=== PATIENT | female | born 1995 | race Two or more races ===

== ENCOUNTER 2019-01-23 08:37 | Emergency (ER) | payer SELFPAY ==
[~2019-01-23] VITALS: Ht 175.3 cm; Wt 79.4 kg
[2019-01-23] MEDS ORDERED: IV NORMAL SALINE 1000ML BAG 1,000 ML IV SCH (08:58)
[2019-01-23] MEDS ORDERED: MORPHINE SULFATE 4 MG/ML VIAL. IV/SQ PRN (09:00)
--- NOTE | 2019-01-23 09:10 | PHYS DOC ---
Past Medical History Past Medical History: No Pertinent History (CLAY CARLISLE MD) Past Surgical History: No Surgical History (CLAY CARLISLE MD) Alcohol Use: Occasionally Drug Use: None (CLAY CARLISLE MD) Adult General Chief Complaint Chief Complaint: ABDOMINAL PAIN HPI HPI Patient is a 23-year-old female who presents to the emergency department for evaluation of right-sided pelvic pain, which began overnight. She began her menstrual cycle yesterday. She states initially she thought the pain was just menstrual-related pain but the pain is worsened. She has had some nausea but no vomiting. She has not had any dysuria, fevers, or vaginal discharge other than her menstrual period. She denies any dizziness, lightheadedness, numbness, or weakness. She has no prior abdominal surgeries. There are no alleviating or exacerbating factors to her symptoms. (CLAY CARLSILE MD) Review of Systems Review of Systems Constitutional: Denies fever or chills [] Eyes: Denies change in visual acuity, redness, or eye pain [] HENT: Denies nasal congestion or sore throat [] Respiratory: Denies cough or shortness of breath [] Cardiovascular: The patient denies any shortness of breath, chest pain, palpitations, or orthopnea [] GI: Denies abdominal pain (other than her pelvic pain). , nausea, vomiting, bloody stools or diarrhea [] : Denies dysuria or hematuria [] Musculoskeletal: Denies back pain or joint pain [] Integument: Denies rash or skin lesions [] Neurologic: Denies headache, focal weakness or sensory changes [] Endocrine: Denies polyuria or polydipsia [] All other systems were reviewed and found to be within normal limits, except as documented in this note. (CLAY CARLISLE MD) Current Medications Current Medications Current Medications Medications (Trade) Dose Ordered Sig/Emelia Start Time Stop Time Status Last Admin Dose Admin Morphine Sulfate (Morphine Sulfate) 4 mg PRN Q15MIN PRN 01/23/19 09:00 01/24/19 08:59 UNV Sodium Chloride 1,000 ml @ 1,000 mls/hr Q1H 01/23/19 08:58 01/23/19 09:57 UNV (MUTUNGA,JESSICA CLEATER) Physical Exam Physical Exam PHYSICAL EXAM: CONSTITUTIONAL: Well developed, well nourished HEAD: normocephalic, atraumatic EENT: PERRL, EOMI. Conjunctivae normal color, sclerae non-icteric; moist mucous membranes. NECK: Supple, non-tender; no meningismus. LUNGS: Lungs CTA, breathing even and unlabored. Normal air movement. HEART: Regular rate and rhythm, no murmur CHEST: No deformity; non-tender ABDOMEN: The abdomen is soft, and non-tender, no masses or bruits. There is focal right sided suprapubic tenderness to palpation in the pelvic area. The right lower quadrant of the abdomen itself is nontender. The upper abdomen, and left abdomen are nontender. EXTREM: Normal ROM; no deformity, no calf tenderness. Normal pulses palpable in all extremities. There is no pedal edema. SKIN: No rash; no diaphoresis NEURO: Alert; normal speech and cognition; CN's grossly intact; strength grossly intact without focal deficit. BACK: No CVA TTP. PELVIC EXAM: Deferred, per patient request for female provider to perform the exam. (CLAY CARLISLE MD) Physical Exam Pelvic exam done by Jessica ANDERSON-external pelvic has trace amount of bright red blood which was wiped off otherwise no acute finding on the external pelvic, cervix is visualized, closed, no CMT, no left adnexal tenderness, mild right adnexal tenderness, small amount of bright red blood in the vaginal vault. (JESSICA FRANCIS APRN) Current Patient Data Vital Signs Vital Signs Date Time Temp Pulse Resp B/P (MAP) Pulse Ox O2 Delivery O2 Flow Rate FiO2 01/23/19 08:50 97.9 75 18 122/65 (84) 98 Room Air 97.9 (JESSICA FRANCIS APRN) Lab Values Laboratory Tests Test 01/23/19 09:00 POC Urine HCG, Qualitative Hcg negative (Negative) (JESSICA FRANCIS APRN) EKG EKG [] (CLAY CARLISLE MD) Radiology/Procedures Radiology/Procedures PROCEDURE: PELVIS W/TV PELVIS W/TV: 01/23/2019 8:58 AM INDICATION: 23 years old Female. Right-sided pelvic pain. COMPARISON: None. TECHNIQUE: Transabdominal and transvaginal sonographic evaluation of the pelvis was performed. Grayscale, color Doppler and spectral waveform analysis were utilized. FINDINGS: UTERUS: Size: 7.4 x 3.9 x 3.2 cm. Masses: None. Endometrium: 8.6 mm. No suspicious vascularity is identified. Nabothian cyst measures 4 mm. RIGHT OVARY: 3.3 x 2.1 x 1.9 cm. Ovary is normal in appearance. LEFT OVARY: 3.0 x 1.9 x 2.0 cm. Ovary is normal in appearance. Arterial and venous waveform are identified within the ovaries bilaterally at the time of imaging. FREE FLUID: There is a trace amount of free fluid within the pelvis, physiologic in amount. URINARY BLADDER: Unremarkable. IMPRESSION: Perfusion is noted to the ovaries bilaterally at the time of imaging. Trace free fluid is present within the pelvis, physiologic in amount.[] PROCEDURE: CT ABD PELV W/ IV CONTRST ONLY CT ABD PELV W/ IV CONTRST ONLY Indication: Right lower quadrant pain since this morning. Exposure: One or more of the following individualized dose reduction techniques were utilized for this examination: 1. Automated exposure control 2. Adjustment of the mA and/or kV according to patient size 3. Use of iterative reconstruction technique. Technique: Intravenous contrast was given. No oral contrast per request. Lung bases are clear. Liver appears unremarkable. Spleen is mildly enlarged, 13.6 cm. Pancreas appears unremarkable. No evidence of adrenal mass. Kidneys demonstrate symmetric enhancement. Numerous low-density lesions in the kidneys bilaterally. Largest in the left upper kidney measures 3.5 cm with cystic density, 6 Hounsfield units. However the numerous other lesions are too small to characterize but could also represent cysts. No evidence of hydronephrosis. No evidence of gallstone. Aorta is nonaneurysmal. Mildly prominent right lower quadrant mesenteric lymph nodes are seen measuring up to 6 mm short axis. No pathologic lymph node enlargement is identified. No significant small bowel distention. No evidence of an acute colitis. The appendix appears normal. No significant inflammatory change or fluid in the right lower quadrant. No evidence of pneumoperitoneum or ascites. No evidence of pelvic mass. Urinary bladder demonstrates no significant wall thickening. Vertebral body height and alignment are intact. IMPRESSION: 1. No evidence of acute appendicitis. 2. Numerous low-density renal lesions, most of which are too small to accurately characterize but could represent cysts. 3. Mild splenomegaly. (CLAY CARLISLE MD) Course & Med Decision Making Course & Med Decision Making Pertinent Labs and Imaging studies reviewed. (See chart for details) []10:40 AM: The patient's condition remains stable. She reports feeling some pain relief. She hasn't reexamined and now has focal right lower quadrant abdominal pain, somewhat more superior than on her initial assessment. CT will be obtained to rule out appendicitis. 12:25 PM: The patient's condition remains stable. She is feeling much better at this time. I discussed test results with the patient, incidental CT findings requiring outpatient follow-up, need for close PCP follow-up and return precautions. (CLAY CARLISLE MD) Dragon Disclaimer Dragon Disclaimer This electronic medical record was generated, in whole or in part, using a voice recognition dictation system. (CLAY CARLISLE MD) Departure Departure Impression: Primary Impression: Abdominal pain Additional Impression: Pelvic pain in female Disposition: 01 HOME, SELF-CARE Condition: STABLE Referrals: SANTOS TAY MD Patient Instructions: Abdominal Pain, Dysmenorrhea, Pelvic Pain, Female Additional Instructions: Ibuprofen 400-600 mg every 6 hours may help improve your symptoms. Scripts Ondansetron Hcl (ZOFRAN) 4 Mg Tablet 1 TAB PO Q6HRS PRN for NAUSEA/VOMITING, #10 TAB Prov: CLAY CARLISLE MD 01/23/19 Problem Qualifiers CLAY CARLISLE MD Jan 23, 2019 09:10 JESSICA FRANCIS APRN Jan 23, 2019 09:19
[2019-01-23 09:18] LABS: BILIRUBIN,URINE NEGATIVE (NEG); CLARITY,URINE CLEAR; COLOR,URINE YELLOW; NITRITE,URINE POSITIVE (NEG); PROTEIN,URINE NEGATIVE (NEG-TRACE)
[2019-01-23 09:25] LABS: BACTERIA,URINE MANY /HPF (0-FEW); WBC,URINE 0 /HPF (0-4)
[2019-01-23 09:43] LABS: BASO # 0.1 x10^3/uL (0.0-0.2); BASO % 1 % (0-3); EOS # 0.2 x10^3/uL (0.0-0.7); EOS % 2 % (0-3); HEMATOCRIT 38.6 % (36.0-47.0); HEMOGLOBIN 14.1 g/dL (12.0-15.5); LYMPH # 1.1 x10^3/uL (1.0-4.8); LYMPH % 13 % (24-48); MEAN CORPUSCULAR HEMOGLOBIN 30 pg (25-35); MEAN CORPUSCULAR HGB CONC 37 g/dL (31-37); MEAN CORPUSCULAR VOLUME 83 fL (79-100); MONO # 0.4 x10^3/uL (0.0-1.1); MONO % 5 % (0-9); NEUT # 6.4 x10^3/uL (1.8-7.7); NEUT % 79 % (31-73); PLATELET COUNT 231 x10^3/uL (140-400); RED BLOOD COUNT 4.66 x10^6/uL (3.50-5.40); RED CELL DISTRIBUTION WIDTH 13.2 % (11.5-14.5); WHITE BLOOD COUNT 8.1 x10^3/uL (4.0-11.0)
[2019-01-23 09:49] LABS: CALCIUM 8.5 mg/dL (8.5-10.1); CREATININE 0.8 mg/dL (0.6-1.0); GFR 89.7; POTASSIUM 3.9 mmol/L (3.5-5.1)
[2019-01-23 09:55] LABS: ALBUMIN 4.4 g/dL (3.4-5.0); ALBUMIN/GLOBULIN RATIO 1.4 (1.0-1.7); TOTAL BILIRUBIN 0.4 mg/dL (0.2-1.0); TOTAL PROTEIN 7.5 g/dL (6.4-8.2)
--- NOTE | 2019-01-23 10:14 | RAD ---
PELVIS W/TV: 01/23/2019 8:58 AM INDICATION: 23 years old Female. Right-sided pelvic pain. COMPARISON: None. TECHNIQUE: Transabdominal and transvaginal sonographic evaluation of the pelvis was performed. Grayscale, color Doppler and spectral waveform analysis were utilized. FINDINGS: UTERUS: Size: 7.4 x 3.9 x 3.2 cm. Masses: None. Endometrium: 8.6 mm. No suspicious vascularity is identified. Nabothian cyst measures 4 mm. RIGHT OVARY: 3.3 x 2.1 x 1.9 cm. Ovary is normal in appearance. LEFT OVARY: 3.0 x 1.9 x 2.0 cm. Ovary is normal in appearance. Arterial and venous waveform are identified within the ovaries bilaterally at the time of imaging. FREE FLUID: There is a trace amount of free fluid within the pelvis, physiologic in amount. URINARY BLADDER: Unremarkable. IMPRESSION: Perfusion is noted to the ovaries bilaterally at the time of imaging. Trace free fluid is present within the pelvis, physiologic in amount. Electronically signed by: Katelynn David MD (01/23/2019 10:11 AM) [facility]
[2019-01-23] MEDS ORDERED: CONTRAST GIVEN. MC PRN (11:15)
[2019-01-23] MEDS ORDERED: IOHEXOL 300 MG/ML 100ML VIAL. IV ONE (11:15)
--- NOTE | 2019-01-23 12:16 | RAD ---
CT ABD PELV W/ IV CONTRST ONLY Indication: Right lower quadrant pain since this morning. Exposure: One or more of the following individualized dose reduction techniques were utilized for this examination: 1. Automated exposure control 2. Adjustment of the mA and/or kV according to patient size 3. Use of iterative reconstruction technique. Technique: Intravenous contrast was given. No oral contrast per request. Lung bases are clear. Liver appears unremarkable. Spleen is mildly enlarged, 13.6 cm. Pancreas appears unremarkable. No evidence of adrenal mass. Kidneys demonstrate symmetric enhancement. Numerous low-density lesions in the kidneys bilaterally. Largest in the left upper kidney measures 3.5 cm with cystic density, 6 Hounsfield units. However the numerous other lesions are too small to characterize but could also represent cysts. No evidence of hydronephrosis. No evidence of gallstone. Aorta is nonaneurysmal. Mildly prominent right lower quadrant mesenteric lymph nodes are seen measuring up to 6 mm short axis. No pathologic lymph node enlargement is identified. No significant small bowel distention. No evidence of an acute colitis. The appendix appears normal. No significant inflammatory change or fluid in the right lower quadrant. No evidence of pneumoperitoneum or ascites. No evidence of pelvic mass. Urinary bladder demonstrates no significant wall thickening. Vertebral body height and alignment are intact. IMPRESSION: 1. No evidence of acute appendicitis. 2. Numerous low-density renal lesions, most of which are too small to accurately characterize but could represent cysts. 3. Mild splenomegaly. Electronically signed by: Lang Galaviz MD (01/23/2019 12:13 PM) [facility]
[2019-01-23] MEDS ORDERED: ONDA4TAB7 PO (12:29)
[2019-01-23 12:30] VITALS: BP 112/55
[2019-01-23] MEDS ORDERED: IOHEXOL 300 MG/ML 100ML VIAL. ONE (15:18)
[2019-01-25 02:08] LABS: GC PROBE Negative (Negative)
--- NOTE | 2019-01-25 11:09 | VNOTE ---
CALL BACK NOTE CALL BACK Microbiology 01/23/19 Wet Prep - Final, Complete Patient was positive for chlamydia, results discussed, prescription for 1 g of azithromycin called to her local pharmacy [facility] [address] [facility] HOA FRANCIS APRN Jan 25, 2019 11:09
== END 2019-01-23 12:55 | disposition home or self-care (01) ==
LOC: ER 08:37
DX: R10.9 Unspecified abdominal pain (principal); R10.2 Pelvic and perineal pain; Z72.89 Other problems related to lifestyle
CPT/HCPCS: 36415; 74177; 76830; 76856; 80053; 81001; 81025; 83690; 85025; 87086; 87491; 87591; 96374; 99285; J2270; J7030; Q0111; Q9967; 96375

== ENCOUNTER 2020-03-02 00:13 | Emergency (ER) | payer BC ==
[~2020-03-02] VITALS: Ht 172.7 cm; Wt 80.0 kg
[~2020-03-02 00:13] MED LIST: ONDA4TAB7 PO
[2020-03-02 01:03] LABS: BASO % 1 % (0-3); CALCIUM 8.2 mg/dL (8.5-10.1); CREATININE 0.7 mg/dL (0.6-1.0); EOS # 0.2 x10^3/uL (0.0-0.7); EOS % 3 % (0-3); GFR 103.7; HEMATOCRIT 35.2 % (36.0-47.0); HEMOGLOBIN 12.8 g/dL (12.0-15.5); LYMPH # 2.7 x10^3/uL (1.0-4.8); LYMPH % 42 % (24-48); MEAN CORPUSCULAR HEMOGLOBIN 31 pg (25-35); MEAN CORPUSCULAR HGB CONC 37 g/dL (31-37); MEAN CORPUSCULAR VOLUME 85 fL (79-100); MONO # 0.4 x10^3/uL (0.0-1.1); MONO % 6 % (0-9); NEUT # 3.1 x10^3/uL (1.8-7.7); NEUT % 49 % (31-73); PLATELET COUNT 244 x10^3/uL (140-400); POTASSIUM 3.1 mmol/L (3.5-5.1); RED BLOOD COUNT 4.16 x10^6/uL (3.50-5.40); RED CELL DISTRIBUTION WIDTH 13.3 % (11.5-14.5); WHITE BLOOD COUNT 6.4 x10^3/uL (4.0-11.0)
[2020-03-02 01:07] LABS: ALBUMIN 3.7 g/dL (3.4-5.0); ALBUMIN/GLOBULIN RATIO 1.3 (1.0-1.7); TOTAL BILIRUBIN 0.4 mg/dL (0.2-1.0); TOTAL PROTEIN 6.5 g/dL (6.4-8.2)
--- NOTE | 2020-03-02 01:37 | PHYS DOC ---
Past Medical History Past Medical History: No Pertinent History Past Surgical History: No Surgical History Smoking Status: Current Some Day Smoker Alcohol Use: Occasionally Drug Use: None General Adult EDM: Chief Complaint: CHEST PAIN HPI: HPI: 24-year-old female who denies any significant past medical history presents the ED with complaints of epigastric sharp, nonradiating abdominal pain that woke patient up approximately 1 hour prior to arrival and states "it's between my boobs," with associated nausea, belching and flatus. Patient states she had the same pain 2 to 3 weeks ago in the same location that spontaneously resolved. Pain not relieved with leaning forward. No associated alcohol/drug/cocaine use. 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 No known Covid exposure. Works construction. Flu vaccine not up-to-date. Has no primary care physician. LMP 2 days ago. Had a normal bowel movement this morning. Father with history of high cholesterol but no cardiac stents. Patient is a former tobacco user. No family history of sudden under the age of 50, connective tissue disorder including Marfan's, no history of aortic aneurysms or dissections. Family history of coagulopathy or arrhythmias. No history of hospitalizations or surgeries. Is not on any medications, no control. 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 Review of Systems: Review of Systems: Constitutional: Denies fever or chills. [] Eyes: Denies change in visual acuity. [] HENT: Denies nasal congestion or sore throat. [] Respiratory: Denies cough or shortness of breath, or hemoptysis Cardiovascular: Denies syncope or edema. [] GI: Denies abdominal pain, nausea, vomiting, bloody stools or diarrhea. [] : Denies dysuria or vaginal bleeding Musculoskeletal: Denies back pain or joint pain. [] Integument: Denies rash. [] Neurologic: Denies headache, focal weakness or sensory changes. [] Endocrine: Denies polyuria or polydipsia. [] Lymphatic: Denies swollen glands. [] Psychiatric: Denies depression or anxiety. [] Heart Score: HEART Score for Chest Pain: HEART Score for Chest Pain Response (Comments) Value History Slighlty/Non-Suspicious 0 ECG Normal 0 Age < 45 0 Risk Factors 1 or 2 Risk Factors 1 Troponin < Normal Limit 0 Total 1 Risk Factors: Risk Factors: DM, Current or recent (<one month) smoker, HTN, HLP, family history of CAD, obesity. Risk Scores: Score 0 - 3: 2.5% MACE over next 6 weeks - Discharge Home Score 4 - 6: 20.3% MACE over next 6 weeks - Admit for Clinical Observation Score 7 - 10: 72.7% MACE over next 6 weeks - Early Invasive Strategies Allergies: Allergies: Allergies Coded Allergies Type Severity Reaction Last Updated Verified No Known Drug Allergies 01/23/19 No Physical Exam: PE: Constitutional: Well developed, well nourished, no acute distress, non-toxic appearance. HENT: Normocephalic, atraumatic, Eyes: EOMI, conjunctiva normal, no discharge. Neck: Normal range of motion, supple, Cardiovascular: S1/2 present, regular rhythm Lungs & Thorax: Speaking in full sentences, bilateral equal chest rise, no tachypnea or increased work of breathing Abdomen: soft, no tenderness, Skin: Warm, dry, no erythema, no rash. [] Back: No tenderness, no CVA tenderness. [] Extremities: No tenderness, no cyanosis, no edema Neurologic: Alert and oriented X 3, normal motor function, normal sensory function, no focal deficits noted. [] Psychologic: Affect normal, judgement normal, mood normal. [] Current Patient Data: Labs: Laboratory Tests Test 03/02/20 00:23 03/02/20 00:40 POC Urine HCG, Qualitative Hcg negative (Negative) White Blood Count 6.4 x10^3/uL (4.0-11.0) Red Blood Count 4.16 x10^6/uL (3.50-5.40) Hemoglobin 12.8 g/dL (12.0-15.5) Hematocrit 35.2 % (36.0-47.0) L Mean Corpuscular Volume 85 fL (79-100) Mean Corpuscular Hemoglobin 31 pg (25-35) Mean Corpuscular Hemoglobin Concent 37 g/dL (31-37) Red Cell Distribution Width 13.3 % (11.5-14.5) Platelet Count 244 x10^3/uL (140-400) Neutrophils (%) (Auto) 49 % (31-73) Lymphocytes (%) (Auto) 42 % (24-48) Monocytes (%) (Auto) 6 % (0-9) Eosinophils (%) (Auto) 3 % (0-3) Basophils (%) (Auto) 1 % (0-3) Neutrophils # (Auto) 3.1 x10^3/uL (1.8-7.7) Lymphocytes # (Auto) 2.7 x10^3/uL (1.0-4.8) Monocytes # (Auto) 0.4 x10^3/uL (0.0-1.1) Eosinophils # (Auto) 0.2 x10^3/uL (0.0-0.7) Basophils # (Auto) 0.0 x10^3/uL (0.0-0.2) Sodium Level 141 mmol/L (136-145) Potassium Level 3.1 mmol/L (3.5-5.1) L Chloride Level 106 mmol/L (98-107) Carbon Dioxide Level 24 mmol/L (21-32) Anion Gap 11 (6-14) Blood Urea Nitrogen 15 mg/dL (7-20) Creatinine 0.7 mg/dL (0.6-1.0) Estimated GFR (Cockcroft-Gault) 103.7 BUN/Creatinine Ratio 21 (6-20) H Glucose Level 155 mg/dL (70-99) H Calcium Level 8.2 mg/dL (8.5-10.1) L Total Bilirubin 0.4 mg/dL (0.2-1.0) Aspartate Amino Transferase (AST) 20 U/L (15-37) Alanine Aminotransferase (ALT) 31 U/L (14-59) Alkaline Phosphatase 64 U/L (46-116) Troponin I Quantitative < 0.017 ng/mL (0.000-0.055) Total Protein 6.5 g/dL (6.4-8.2) Albumin 3.7 g/dL (3.4-5.0) Albumin/Globulin Ratio 1.3 (1.0-1.7) Lipase 101 U/L (73-393) Laboratory Tests 03/02/20 00:40 Laboratory Tests 03/02/20 00:40 Vital Signs: Vital Signs Date Time Temp Pulse Resp B/P (MAP) Pulse Ox O2 Delivery O2 Flow Rate FiO2 03/02/20 00:16 98.1 70 20 101/57 (72) 100 Room Air 98.1 EKG: EKG: Sinus rhythm at 69 bpm, no axis deviation, normal intervals, T wave inversion V2, no ST elevations or ST depressions Radiology/Procedures: Radiology/Procedures: []IMAGING REPORT Signed PATIENT: SJ TATEACCOUNT: [id number] : 1995 LOCATION: ER AGE: 24 SEX: F EXAM STATUS: DEP ER ORD. PHYSICIAN: ROSANNA OCHOA DO REASON: cp PROCEDURE: CHEST AP ONLY INDICATION: Reason: cp / Spl. Instructions: / History: COMPARISON: None. FINDINGS: Single view of chest obtained. No focal airspace consolidation. Cardiomediastinal contour unremarkable. No acute osseous abnormality. IMPRESSION: * No focal airspace consolidation or edema. Electronically signed by: Katya Rodriguez MD (03/02/2020 3:49 AM) DESKTOP- [id number] DICTATED and SIGNED BY: KATYA RODRIGUEZ MD DATE: 03/02/20 [id number] 0 Impression: 0 criteria No need for further workup, as <2% chance of PE. If no criteria are positive and clinicians pre-test probability is <15%, PERC Rule criteria are satisfied. 0 points Low risk group for DVT. Unlikely according to Wells DVT studies. Course & Med Decision Making: Course & Med Decision Making Pertinent Labs and Imaging studies reviewed. (See chart for details) Concern for epigastric abdominal pain with associated belching and flatus. Gerd? -pt slept right after eating. Patient reports her symptoms are almost fully resolved. Patient is low risk for mace, PERC -0 criteria for Wells DVT score. EKG with no concerning ischemia pathology. Labs including troponin and pregnanc y are wnl/negative. No recent upper respiratory infection to suspect pericarditis. Chest x-ray unremarkable. will discharge home with strict ED return precautions were given for dyspnea, abscess, recurrence of chest or back pain or neurologic deficits. Encouraged urgent outpatient follow-up with PMD. Life-threatening processes were considered but are low suspicion at this time, given history, physical exam and ED workup. Pt was educated on all prescription medications and adverse effects. All patient's questions were answered and pt was stable at time of discharge. Life/limb-threatening differential includes but is not limited to, acute myocardial infarction, aortic dissection, congestive heart failure, esophageal injury including rupture, surgical abdomen, arrhythmia, cardiomyopathy, myocarditis, pericarditis, peptic ulcer disease, pneumomediastinum, pneumonia, pneumothorax, pulmonary embolus, unstable angina, rib fracture, contusion, pericardial tamponade or effusion, pulmonary contusion I spoken with the patient and her caregivers. I explained the patient's condition, diagnoses and treatment plan based on the information available to me at this time. I have answered the patient and her caregiver's questions and addressed any concerns. The patient and her caregivers have a good understanding of patient's diagnosis, condition and treatment plan as can be expected at this point. Vital signs have been stable. Patient's condition is stable and appropriate for discharge from the emergency department. Patient will pursue further outpatient evaluation with primary care physician or other designated or consulting physician as outlined in the discharge instructions. The patient and/or caregivers are agreeable to this plan of care and follow-up instructions have been explained in detail. The patient and/or caregivers have received these instructions in written form and have expressed an understanding of the discharge instructions. The patient and/or caregivers are aware that any significant change of condition or worsening of symptoms should prompt immediate return to this or the closest emergency department or call to [facility]. Shazia Disclaimer: Sahzia Disclaimer: This electronic medical record was generated, in whole or in part, using a voice recognition dictation system. Departure Departure Impression: Primary Impression: Chest pain Disposition: 01 DC HOME SELF CARE/HOMELESS Condition: STABLE Referrals: NO PCP (PCP) FOLLOW UP WITH FAMILY MEDICINE: Family Medicine Address: [address] [place] [id number] Patient Instructions: Chest Pain (Nonspecific), Gastritis, Adult Additional Instructions: EMERGENCY DEPARTMENT GENERAL DISCHARGE INSTRUCTIONS Thank you for coming to [facility] Emergency Department (ED) today and trusting us with you care. We trust that you had a positive experience in our Emergency Department. If you wish to speak to the department management, you may call the Director at [phone]. YOUR FOLLOW UP INSTRUCTIONS ARE FOLLOWS: 1. Do you have a private Doctor? If you do not have a private doctor, please ask for a resource list of physicians or clinics that may be able to assist you with follow up care. 2. The Emergency Physicain has interpreted your x-rays. The X-Ray specialist will also review them. If there is a change in the findings, you will be notified in 48 hours when at all possible. 3. A lab test or culture has been done, your results will be reviewed and you will be notified if you need a change in treatment. ADDITIONAL INSTRUCTIONS AND INFORMATION: 1. Your care today has been supervised by a physician who is specially trained in emergency care. Many problems require more than one evaluation for a complete diagnosis and treatment. We recommend that you schedule your follow up appointment as re commended to ensure complete treatment of you illness or injury. If you are unable to obtain follow up care and continue to have a problem, or if your condition worsens, we recommend that you return to the ED. 2. We are not able to safely determine your condition over the phone nor are we able to give sound medical advice over the phone. For these safety reasons, if you call for medical advice we will ask you to come to the ED for further evaluation. 3. If you have any questions regarding these discharge instructions please call the ED at [phone]. SAFETY INFORMATION: In the interest of safety, wellness, and injury prevention; we encourage you to wear your sealbelt, if you smoke; quite smoking, and we encourage family to use a protective helmet for bicycling and other sporting events that present an increased risk for head injury. IF YOUR SYMPTOMS WORSEN OR NEW SYMPTOMS DEVELOP, OR YOU HAVE CONCERNS ABOUT YOUR CONDITION; OR IF YOUR CONDITION WORSENS WHILE YOU ARE WAITING FOR YOUR FOLLOW UP APPOINTMENT; EITHER CONTACT YOUR PRIMARY CARE DOCTOR, THE PHYSICIAN WHOSE NAME AND NUMBER YOU WERE GIVEN, OR RETURN TO THE ED IMMEDIATELY. [facility] DO Mar 02, 2020 01:37
[2020-03-02 02:00] VITALS: BP 99/57
[2020-03-02] MEDS ORDERED: LIDO:MAALOX 1:1 20 ML SINGLE DOSE. SWSW ONE (02:30)
--- NOTE | 2020-03-02 03:51 | RAD ---
INDICATION: Reason: cp / Spl. Instructions: / History: COMPARISON: None. FINDINGS: Single view of chest obtained. No focal airspace consolidation. Cardiomediastinal contour unremarkable. No acute osseous abnormality. IMPRESSION: * No focal airspace consolidation or edema. Electronically signed by: Carlos Rodriguez MD (03/02/2020 3:49 AM) [id number]
--- NOTE | 2020-03-05 04:37 | EKG ---
[facility] [address] [place] [address] Test Date: 2020-03-02 Test Time: 00:27:30 Pat Name: SJ TATE Department: Room: Gender: F Geophysical Drafter: : 1995 Requested By: ROSANNA OCHOA Order Number: [id number] Reading MD: Measurements Intervals Wood Rate: 67 P: 56 MO: 154 QRS: 65 QRSD: 86 T: 51 QT: 368 QTc: 391 Interpretive Statements SINUS RHYTHM QRS(T) CONTOUR ABNORMALITY CONSIDER ANTEROLATERAL MYOCARDIAL DAMAGE POSSIBLY ABNORMAL ECG RI6.01 No previous ECG available for comparison
== END 2020-03-02 02:05 | disposition home or self-care (01) ==
LOC: ER 00:13
DX: R07.89 Other chest pain (principal); R10.13 Epigastric pain; R11.0 Nausea; F17.200 Nicotine dependence, unspecified, uncomplicated
CPT/HCPCS: 36415; 71045; 80053; 81025; 83690; 84484; 85025; 93005; 99284; 99285